=== PATIENT | female | born 1950 | race Caucasian/White ===

== ENCOUNTER 2020-12-01 08:47 | Day surgery (SDC) | payer MEDICARE ==
[2020-11-30 12:49] LABS: COVID AG,FIA SOURCE NASOPHARYNGEAL
[~2020-12-01] VITALS: Ht 160 cm; Wt 73.2 kg
[~2020-12-01 08:47] MED LIST: ATEN-72 PO; RINGERS SOLUTION,LACTATED 500 ML IV ONE
[2020-12-01] MEDS ORDERED: KETOROLAC TROMETHAMINE 0.5% 5 ML OPHTHALMIC SOLUTION ONE (09:05)
[2020-12-01] MEDS ORDERED: RINGERS SOLUTION,LACTATED 500 ML IV ONE (09:05)
[2020-12-01] MEDS ORDERED: MOXIFLOXACIN HCL 0.5% 3 ML OPHTHALMIC SOLUTION ONE (09:06)
[2020-12-01] MEDS ORDERED: PHENYLEPHRINE HCL 2.5% 2 ML OPHTHALMIC SOLUTION ONE (09:06)
[2020-12-01] MEDS ORDERED: TROPICAMIDE 1% 2 ML OPHTHALMIC SOLUTION ONE (09:06)
[2020-12-01] MEDS: MOXIFLOXACIN HCL 0.5% 3 ML OPHTHALMIC SOLUTION OD SCH ×3 (09:35→09:45)
[2020-12-01] MEDS: TROPICAMIDE 1% 2 ML OPHTHALMIC SOLUTION OD SCH ×3 (09:35→09:45)
[2020-12-01] MEDS: KETOROLAC TROMETHAMINE 0.5% 5 ML OPHTHALMIC SOLUTION OD SCH ×3 (09:35→09:45)
[2020-12-01] MEDS: PHENYLEPHRINE HCL 2.5% 2 ML OPHTHALMIC SOLUTION OD SCH ×3 (09:35→09:45)
[2020-12-01] MEDS ORDERED: MIDAZOLAM HCL 2 MG/2 ML VIAL IVP ONE (12:00)
[2020-12-01] MEDS ORDERED: FentaNYL CITRATE PF 100 MCG/2 ML VIAL IVP ONE (12:00)
[2020-12-01] MEDS ORDERED: CHONDR SULF A SOD/HYALURONATE 1.05 ML KIT IO ONE (17:47)
[2020-12-01] MEDS ORDERED: TETRACAINE HCL/PF 0.5% 4 ML OPHTHALMIC SOLUTION ONE (17:47)
[2020-12-01] MEDS ORDERED: POVIDONE-IODINE 10% 15 ML SOLUTION UD ONE (17:47)
[2020-12-01] MEDS ORDERED: EPINEPHrine 1:1,000 [1 MG/ML] AMP ONE (17:47)
[2020-12-01] MEDS ORDERED: BALANCED SALT 15 ML OPHTHALMIC IRRIG.SOLN ONE (17:47)
== END 2020-12-01 11:10 | disposition home or self-care (01) ==
LOC: SURGERY 08:47 → EDUNIT# 11:45
PROVIDERS: ATTEND Ophthalmology
DX: H25.11 Age-related nuclear cataract, right eye (principal); I10 Essential (primary) hypertension; E66.3 Overweight; Z98.890 Other specified postprocedural states; Z79.899 Other long term (current) drug therapy
CPT/HCPCS: 66984; 87426; A9575; C9803; J0171; J2250; J3010; J7120; V2632